=== PATIENT | female | born 1960 | race Caucasian/White ===

== ENCOUNTER 2021-07-23 19:50 | Emergency (ER) | payer OTHER ==
[~2021-07-23] VITALS: Ht 157.5 cm; Wt 77.0 kg
[2021-07-23 19:56] VITALS: BP 133/72
[2021-07-23] MEDS ORDERED: TOPUD MT (23:54)
== END 2021-07-24 00:09 | disposition home or self-care (01) ==
LOC: ER 19:50
DX: S09.8XXA Other specified injuries of head, initial encounter (principal); M25.561 Pain in right knee; E11.9 Type 2 diabetes mellitus without complications; W01.0XXA Fall on same level from slipping, tripping and stumbling without subsequent striking against object, initial encounter; Y93.89 Activity, other specified; Y92.488 Other paved roadways as the place of occurrence of the external cause
CPT/HCPCS: 70486; 71045; 73562; 99284